=== PATIENT | female | born 1935 | race African-American/Black ===

== ENCOUNTER 2019-02-26 10:04 | Observation (INO) ==
--- NOTE | 2019-02-26 10:36 | Diag Imaging Result Doc PS360 ---
EXAM: CT HEAD W/O CONTRAST HISTORY: numbness TECHNIQUE: CT head without contrast COMPARISON: None. FINDINGS: No parenchymal hemorrhage. No epidural or subdural hematoma. No subarachnoid hemorrhage. There is mild atrophy. No mass identified on this noncontrasted exam. No hydrocephalus. No sinus opacification. IMPRESSION: No hemorrhage. Mild atrophy. This exam was performed using automated exposure control, adjustment of mA or kV according to patient size, and/or use of iterative reconstruction technique. Electronically signed by Sravan Mascorro 02/26/2019 10:34 AM
[2019-02-26 10:39] LABS: BASO# 0.01 X1000 (0.0-0.2); BASO% 0.1 % (0.0-0.8); EOS# 0.11 X1000 (0.0-0.7); EOS% 1.4 % (0.0-10.0); HEMATOCRIT 30.2 % (37.0-47.0); HEMOGLOBIN 9.4 g/dL (12.0-16.0); IMM GRAN# 0.04 X1000 (0.0-0.04); IMM GRAN% 0.5 % (0.0-0.5); LYMPH# 1.06 X1000 (1.2-3.4); LYMPH% 13.2 % (20.5-51.1); MCH 26.6 PG (27-31); MCHC 31.1 g/dL (33-37); MCV 85.3 FL (81-99); MONO# 0.86 X1000 (0.11-0.59); MONO% 10.7 % (1.7-9.3); MPV 11.2 FL (7.4-10.4); NEUT# 5.93 X1000 (1.4-6.5); NEUT% 74.1 % (42.2-75.2); PLT 180 X1000 (130-400); RBC 3.54 XMIL (4.2-5.4); RDW 13.7 % (11.5-14.5); WBC 8.01 X1000 (4.8-10.8)
[2019-02-26 10:57] LABS: ALBUMIN 4.1 g/dL (3.5-5.0); CALCIUM 9.7 mg/dL (8.8-10.2); POTASSIUM 4.4 mmol/L (3.5-5.1); TOTAL BILIRUBIN 0.2 mg/dL (0.20-1.00); TOTAL PROTEIN 7.1 g/dL (6.3-8.3)
[2019-02-26 11:12] LABS: URINE SOURCE CATH
[2019-02-26 11:19] LABS: BILIRUBIN URINE NEGATIVE (NEGATIVE); BLOOD URINE SMALL (NEGATIVE); COLOR YELLOW; GLUCOSE URINE NEGATIVE (NEGATIVE); KETONE URINE NEGATIVE (NEGATIVE); LEUKOCYTES URINE LARGE (NEGATIVE); NITRITE URINE NEGATIVE (NEGATIVE); PH URINE 7.5; PROTEIN URINE 30 mg/dL (NEGATIVE); SP GRAVITY URINE 1.016; TURBIDITY URINE TURBID (CLEAR); UROBILINOGEN URINE NORMAL (NORMAL)
[2019-02-26 11:20] LABS: UR EPITHELIAL CELLS <10 /HPF (<10); URINE BACTERIA 2+ /HPF; URINE RBC <10 /HPF (<10); URINE WBC TNTC /HPF (<10)
[2019-02-26] MEDS ORDERED: CIPRO PO ONE (12:20)
--- NOTE | 2019-02-26 12:48 | PROVIDER DOCUMENTATION ---
This chart was entered by Zhanna Nuñez Scribe, acting as scribe for Rajat Pritchett MD. HPI-Musculoskeletal Pain/Inj - GENERAL Stated Complaint: "Legs aren't working right" Time Seen by Provider: 02/26/19 10:02 Source: patient, EMS (first response) - HX OF PRESENT ILLNESS-MUSKULOSKELTAL Nature of Presenting Problem: 83 yobf presents to the ed via ems (first response) with c/o generalized BLE weakness during the night. pt sts she ambulates with a walker and last night had urgency to urinate but when she went to the restroom her lower extremities felt weak. pt has had intermittent dizziness and decreased urination. pt started a new bladder medication 2 weeks prior Quality of Pain: reports: fullness Severity in ED: moderate Onset/Duration: last night (and into the vp securities hours) Timing: intermittent Modifying Factors: improves with: rest. worse with: other (ambulation) Any recent injury?: No Locality of Occurance: Home Similar Symptoms Previously?: No Recently seen or treated by another doctor?: Yes (pcp 2 weeks prior) Review of Systems - Adult - REVIEW OF SYSTEMS - ADULT Constitutional: denies: chills, fever Eyes: reports: no symptoms reported Ears, Nose, Mouth & Throat: reports: no symptoms reported Cardiovascular: denies: chest pain, palpitations, syncope Respiratory: denies: cough, shortness of breath, wheezing Gastrointestinal: denies: diarrhea, nausea, vomiting Genitourinary: reports: see HPI, urinary retention, urgency Musculoskeletal: reports: see HPI, other (BLE weakness) Integumentary: reports: no symptoms reported Neurological: reports: see HPI, dizziness/vertigo. denies: headache/migraines, slurred speech, syncope, tremors Psychiatric: reports: no symptoms reported Endocrine: reports: no symptoms reported Hematologic/Lymphatic: reports: no symptoms reported Allergic/Immunologic: reports: no symptoms reported All Other Systems: Reviewed and Negative Past History - Adult - PAST MEDICAL HISTORY-ADULT Review of Records: reports: Old Records Reviewed, Nursing Assessment Review, Medications Reviewed, Social history reviewed & non-contributory. Major Childhood Illnesses: reports: denies history Cardiovascular: reports: HTN, hyperlipidemia Respiratory: reports: denies history Gastrointestinal: reports: denies history Obstetrical/Gynecological: reports: denies history Genitourinary: reports: other (overactive bladder) Musculoskeletal: reports: arthritis Neurological: reports: denies history Psychiatric: reports: denies history Endocrine/Immune: reports: Diabetes, thyroid disorder Diabetes Type: Type 2 Other Conditions: reports: denies history - PRIOR SURGERIES/PROCEDURES Surgical/Procedure History: reports: hysterectomy, joint replacement - IMMUNIZATION STATUS Childhood Immunizations: See Nurse Assessment Flu Vaccine: See Nurse Assessment - SOCIAL HISTORY Smoking: denies Substance Use: denies Living Situation: alone Physical Exam-Injury Related - Physical Exam-Injury Related Initial Vital Signs Reviewed: Yes General Appearance: appears well, alert, no apparent distress (pt is nontoxic in appearance), obese Eyes: PERRL/EOMI, pink conjunctivae Head, Ears, Nose, Mouth & Throat: moist mucous membranes Neck: non-tender, full range of motion, supple, normal inspection Respiratory: chest non-tender, lungs clear, normal breath sounds Cardiovascular: normal peripheral pulses, regular rate, rhythm Chest/Breast: deferred Abdominal Exam: normal bowel sounds, non tender, soft Female Genitalia/Pelvic Exam: other (prolapsed bladder noted). negative: blood Male Genitalia: deferred Rectal Exam: deferred Hemoccult Exam: deferred Lymphatic: no adenopathy Back Exam: normal inspection, no CVA tenderness, no vertebral tenderness Extremity: normal range of motion, non-tender, normal capillary refill, pelvis stable, swelling (BLE edema). 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 tested Psych/Mental Status: normal mood/affect, normal thought content, normal thought process, oriented x 3 - Glascow Coma Score Best Eye Response (Raymundo): (4) open spontaneously Best Verbal Response (Raymundo): (5) oriented Best Motor Response (Raymundo): (6) obeys commands [place] Total: 15 Progress - PLAN OF CARE/RESULTS Progress/Plan/Lab Results: Vital Signs - 8 hr 02/26/19 10:03 Temperature 97.3 F L Pulse Rate 78 Respiratory Rate 20 Blood Pressure 147/62 O2 Sat by Pulse Oximetry 98 Laboratory Results - last 24 hr 02/26/19 02/26/19 02/26/19 10:23 10:34 10:34 WBC 8.01 RBC 3.54 L Hgb 9.4 L Hct 30.2 L MCV 85.3 MCH 26.6 L MCHC 31.1 L RDW Std Deviation 13.7 Plt Count 180 MPV 11.2 H Immature Gran % (Auto) 0.5 Neut % (Auto) 74.1 Lymph % (Auto) 13.2 L Bollinger % (Auto) 10.7 H Eos % (Auto) 1.4 Baso % (Auto) 0.1 Immature Gran # (Auto) 0.04 Neut # (Auto) 5.93 Lymph # (Auto) 1.06 L [place]linger # (Auto) 0.86 H Eos # (Auto) 0.11 Baso # (Auto) 0.01 Sodium 142 Potassium 4.4 Chloride 103 Carbon Dioxide 27 Anion Gap 12 BUN 45 H Creatinine 1.0 H Estimated GFR/1.73 m2 53 BUN/Creatinine Ratio 45 Glucose 97 POC Glucose 100 Calculated Osmolality 295 Calcium 9.7 Total Bilirubin 0.20 AST 15 ALT 11 Alkaline Phosphatase 131 H Total Protein 7.1 Albumin 4.1 Globulin 3.0 Albumin/Globulin Ratio 1.0 Urine Source Urine Color Urine Turbidity Urine pH Ur Specific [place] Urine Protein Ur Glucose (Stick) Ur Ketones (Stick) Urine Blood Urine Nitrite Urine Bilirubin Urobilinogen Dipstick Urine Leukocytes Urine WBC (Auto) Urine RBC (Auto) U Epithel Cells (Auto) Urine Bacteria (Auto) 02/26/19 02/26/19 11:05 13:28 WBC RBC Hgb Hct MCV MCH MCHC RDW Std Deviation Plt Count MPV Immature Gran % (Auto) Neut % (Auto) Lymph % (Auto) [place] % (Auto) Eos % (Auto) Baso % (Auto) Immature Gran # (Auto) Neut # (Auto) Lymph # (Auto) [place]linger # (Auto) Eos # (Auto) Baso # (Auto) Sodium Potassium Chloride Carbon Dioxide Anion Gap BUN Creatinine Estimated GFR/1.73 m2 BUN/Creatinine Ratio Glucose POC Glucose 78 Calculated Osmolality Calcium Total Bilirubin AST ALT Alkaline Phosphatase Total Protein Albumin Globulin Albumin/Globulin Ratio Urine Source CATH Urine Color YELLOW Urine Turbidity TURBID Urine pH 7.5 Ur Specific [place] 1.016 Urine Protein 30 A Ur Glucose (Stick) NEGATIVE Ur Ketones (Stick) NEGATIVE Urine Blood SMALL A Urine Nitrite NEGATIVE Urine Bilirubin NEGATIVE Urobilinogen Dipstick NORMAL Urine Leukocytes LARGE A Urine WBC (Auto) TNTC A Urine RBC (Auto) <10 U Epithel Cells (Auto) <10 Urine Bacteria (Auto) 2+ Orders Category Date Time Status Street Cath Insertion ORDERED Care 02/26/19 12:[address] HEAD W/O CONTRAST [CT] Stat Exams 02/26/19 10:02 Completed CBC WITH ELECTRONIC DIFF [HEME] Stat Lab 02/26/19 10:34 Completed COMPREHENSIVE METABOLIC PANEL [CHEM] Stat Lab 02/26/19 10:34 Completed UA NIMS W/REFLEX CULT [URINALYSIS] Stat Lab 02/26/19 11:05 Completed Acetaminophen [Tylenol] Med 02/26/19 13:19 Discontinued 1,000 mg PO NOW ONE Bisoprolol [Zebeta] Med 02/26/19 13:33 Discontinued 10 mg PO NOW ONE Ciprofloxacin [Cipro] Med 02/26/19 12:20 Discontinued 500 mg PO NOW ONE Hydrochlorothiazide Med 02/26/19 13:18 Discontinued 12.5 mg PO NOW ONE Hydrochlorothiazide Med 02/26/19 13:34 Discontinued 6.25 mg PO NOW ONE LISINOpril [Prinivil] Med 02/26/19 13:18 Discontinued 20 mg PO NOW ONE Result Diagrams: 02/26/19 10:34 02/26/19 10:34 - REASSESSMENT Reassessment #1 Time Reassessed: 11:09 (dr cervantes in attempted to reduce the prolapsed bladder it is improved but still prolapsed ) Status: unchanged Reassessment #2 Time Reassessed: 12:46 Status: other (Pt requesting to stay as she cannot ambulate.) - EKG 1 Time of EKG reading by physician:: 10:14 EKG Read and Signed by:: Rajat Pritchett EKG Interpretation (*Must complete 3 of following elements*): Abnormal Rate: 76 Rhythm: nsr [place]: normal QRS: normal DC Interval: normal ST Wave: depressed (junctional ST depression, probably abnormal) - CT/MRI 1 CT Study: Head Impression: See EMR Report - CONSULTS/PCP/HOSPITALIST Notification #1 *Consult/PCP/Hospitalist*: dr ye pcp Time Discussed: 12:17 (pcp sts to place a street cath and she can f/u with him and regulatory law specialist next week) Reason/Comments: phone consult Consult Disposition: F/U in office #2 Consult: hospitalist Time Discussed: 13:19 (spoke with octavio) Reason/Comments: phone consult #3 Consult: hospitalist dr wagner Time Discussed: 13:38 Reason/Comments: is in ed speaking with pt Consult Disposition: Admit Departure - Departure Date of Disposition Decision: 02/26/19 Time of Disposition Decision: 11:42 DIAGNOSIS: Urine retention, Prolapsed bladder UTI (urinary tract infection) Qualifiers: Urinary tract infection type: site unspecified Hematuria presence: with hematuria Qualified Code(s): N39.0 - Urinary tract infection, site not specified; R31.9 - Hematuria, unspecified Disposition: ADMITTED INPATIENT 09 Certified Medical Emergency: Emergent Condition: Stable Additional Instructions: ED Follow Up Instructions: You have been treated by a care provider in the Emergency Department. These instructions are being provided to you so you can have an understanding of how to care for yourself upon discharge. Upon discharge from the Emergency Department, you are responsible for making arrangements for follow-up care by a physician of your choice. Take all prescribed medications as directed. Return to the Emergency Department immediately for any new or worsening symptom s. You may call the Physician Referral phone number at [phone] to obtain a list of Physicians who are taking new patients. Referrals and Follow-Ups: Matthew Ye MD [ACTIVE STAFF PHYSICIAN] - Discharge Education: Acute Urinary Retention, Female, Urinary Tract Infection, Adult, [id number], Indwelling Urinary Catheter Care, Adult, [id number] - Critical Care Note This patient required my direct & personal management of CC.: No Attestation - Physician/ ALEXA Attestation Patient care was provided by Advanced Practice Provider:: No The physician spent face to face time with patient:: Yes Advanced Practice Provider documentation review:: Supervising physician onsite and consulted in the evaluation and care of this patient. The physician did have a face to face encounter with the patient. This chart was documented by the indicated scribe, (Zhanna Nuñez Scribe) and accurately reflects the services I performed and decisions made by me, Rajat Pritchett MD, as attested by the provider's signature.
[2019-02-26] MEDS ORDERED: HYDROCHLOROTHIAZIDE PO ONE ×2 (13:18→13:34)
[2019-02-26] MEDS ORDERED: PRINIVIL PO ONE (13:18)
[2019-02-26] MEDS ORDERED: TYLENOL PO ONE (13:19)
[2019-02-26] MEDS ORDERED: ZEBETA PO ONE (13:33)
[2019-02-26] MEDS ORDERED: HYDROCHLOROTHIAZIDE ONE ×2 (13:54→14:33)
--- NOTE | 2019-02-26 14:19 | EKG Report ---
Test Performed on : 02/26/2019 10:14:10 AM Test Reason : ER Blood Pressure : / mmHG Vent. Rate : 076 BPM Atrial Rate : 076 BPM P-R Int : 168 ms QRS Dur : 076 ms QT Int : 376 ms P-R-T Axes : 073 -11 010 degrees QTc Int : 423 ms Normal sinus rhythm. Junctional ST depression, probably abnormal Abnormal ECG When compared with ECG of 17-FEB-2017 09:36, No significant change was found Unconfirmed Result
--- NOTE | 2019-02-26 15:20 | HISTORY AND PHYSICAL ---
PRIMARY CARE PHYSICIAN: Dr. Sheridan. CHIEF COMPLAINT: Bilateral lower extremity weakness, dizziness, urinary frequency, urgency, increased difficulty walking with her walker that progressively worsened overnight last night. HISTORY OF PRESENTING ILLNESS: This is an 83-year-old female who presents to [facility] ER with complaints of bilateral lower extremity weakness, stating that she uses a walker and had to go to the bathroom several times last night, but with each episode of ambulating, she became weaker and more difficult to walk. She had urinary urgency and frequency. Has had an issue in the past with a prolapsed bladder and had a pessary placed. Was noted today to have a prolapsed bladder. The ER physician attempted to reduce and was able to reduce some and it improved, but it was still prolapsed. A Huffman catheter was placed. Her urinalysis showed negative nitrites, large leukocytes, 2+ bacteria. White count was normal at 8.01. She does also have some 1+ to 2+ pitting edema to her bilateral lower extremities, so she will be admitted for further evaluation and treatment. PAST MEDICAL HISTORY: Hypertension, hyperlipidemia, an overactive bladder, diabetes type 2, hypothyroidism. PAST SURGICAL HISTORY: Hysterectomy and joint replacement and a pessary placement. FAMILY HISTORY: Reviewed and noncontributory. SOCIAL HISTORY: She currently lives alone. Denies any tobacco, alcohol or illicit drug use. ALLERGIES: She has no known drug allergies. HOME MEDICATIONS: She takes Lipitor 10 mg p.o. daily, bisoprolol/hydrochlorothiazide 10/6.25 one p.o. daily, Cardura 4 mg p.o. b.i.d., Lasix 40 mg p.o. daily, Lantus 20 units subcutaneous b.i.d., Prinzide 20/12.5 one p.o. daily, methimazole 10 mg p.o. b.i.d., Macrobid 100 mg p.o. b.i.d. will be held, MiraLAX 17 g p.o. daily, Detrol LA 4 mg p.o. daily and tolterodine ER 4 mg p.o. daily. LABORATORY DATA: Showed a white blood cell count of 8.01, hemoglobin 9.4, hematocrit 30.2, platelets 180. Sodium 142, potassium 4.4, chloride 103, CO2 27. BUN of 45, creatinine of 1, glucose 97. Urinalysis showed negative nitrites, large leukocytes, 2+ bacteria. X-RAY DATA: EKG showed normal sinus rhythm at 76. Head CT showed no hemorrhage and mild atrophy. REVIEW OF SYSTEMS: She denied any fever, chills, blurred vision. She was positive for dizziness, bilateral lower extremity weakness, decreased urination, urgency, hesitancy, frequency. Denied any abdominal pain, constipation, diarrhea, nausea, vomiting. PHYSICAL EXAMINATION: VITAL SIGNS: On arrival, showed a temperature of 97.3 degrees, pulse 78, respirations 20, blood pressure 147/62, satting 98% on room air. GENERAL: This is an 83-year-old female, who is lying in the bed and answers questions appropriately. HENT: Normocephalic, atraumatic. Normal ENT inspection. Oropharynx and nares are clear. EYES: Pupils are equal, round, reactive to light and accommodation. Extraocular movements are intact. NECK: Normal inspection, normal range of motion. LUNGS: Clear to auscultation bilaterally with equal lung expansion and chest wall movement. HEART: Regular rate and rhythm. No murmurs, rubs, or gallops. She does have 1+ to 2+ pitting edema to bilateral lower extremities also. ABDOMEN: Soft, nontender, nondistended. Bowel sounds are present x4 quadrants. MUSCULOSKELETAL: She has 2/5 strength to bilateral lower extremities, 5/5 strength to bilateral upper extremities. NEUROLOGICAL: The cranial nerves 2-12 appear grossly intact. BEAUTY SALES CONSULTANT: She does have a prolapsed bladder. We placed an indwelling Huffman catheter. ASSESSMENT: 1. Urinary tract infection. 2. Urinary retention. 3. A prolapsed bladder. 4. Bilateral lower extremity weakness. PLAN: She will be admitted to the medical unit at [place], placed on telemetry. We will consult Urogynecology. We will consult physical therapy. We will place on a diabetic diet. Place on Rocephin 1 gram IV q. 24 hours. Urine culture is pending. We will do pattern blood sugars with a sliding scale insulin. Continue on medications as previously identified. Recheck a CBC, BMP in the a.m. Further orders after seen by attending and pre sales technical consultant. Dictated by EUGENE Frias for Layton Bland MD cc: EUGENE Frias MD Rodney W. Harney, MD
[2019-02-26] MEDS ORDERED: TYLENOL PO PRN (15:30)
[2019-02-26] MEDS ORDERED: ROCEPHIN 1 GM in NS 50 ML IV SCH (15:30)
[2019-02-26] MEDS ORDERED: ZOFRAN IV PRN (15:30)
[2019-02-26] MEDS: HUMALOG (PARKWAY) SUBQ SCH ×2 (16:45→22:00)
--- NOTE | 2019-02-26 18:48 | HISTORY AND PHYSICAL ---
SUBJECTIVE: Patient has no major complaints. OBJECTIVE: Vital signs: Blood pressure is 135/51, heart rate 68, respiratory rate 15, temperature 98.1 degrees, 97% on room air. Cardiovascular: Regular rate and rhythm. Pulmonary: Bilateral breath sounds clear to auscultation. GI: Soft, nontender, nondistended. Bowel sounds are positive. I did not appreciate any prolapse myself. PROBLEM LIST: 1. She has urinary tract infection, which we will treat with antibiotics and monitor closely. 2. Vesicular prolapse. We are going to continue to monitor closely. 3. Hypothyroidism. We will check her thyroid function and monitor. cc: Layton Bland MD
[2019-02-26] MEDS: NORCO-5 PO PRN (18:53)
[2019-02-26] MEDS: OMNICEF PO SCH (20:33)
[2019-02-26] MEDS: CARDURA PO SCH (20:33)
[2019-02-26] MEDS: TAPAZOLE PO SCH (21:00)
[2019-02-26] MEDS: LANTUS INSULIN SUBQ SCH (22:00)
[2019-02-27] MEDS: NORCO-5 PO PRN ×3 (05:44→20:39)
[2019-02-27 06:12] LABS: BASO# 0.01 X1000 (0.0-0.2); BASO% 0.2 % (0.0-0.8); EOS# 0.15 X1000 (0.0-0.7); EOS% 2.5 % (0.0-10.0); HEMATOCRIT 26.5 % (37.0-47.0); HEMOGLOBIN 8.2 g/dL (12.0-16.0); IMM GRAN# 0.02 X1000 (0.0-0.04); IMM GRAN% 0.3 % (0.0-0.5); LYMPH# 1.33 X1000 (1.2-3.4); LYMPH% 22.2 % (20.5-51.1); MCH 26.7 PG (27-31); MCHC 30.9 g/dL (33-37); MCV 86.3 FL (81-99); MONO% 11.7 % (1.7-9.3); MPV 11.8 FL (7.4-10.4); NEUT# 3.77 X1000 (1.4-6.5); NEUT% 63.1 % (42.2-75.2); PLT 159 X1000 (130-400); RBC 3.07 XMIL (4.2-5.4); RDW 13.7 % (11.5-14.5); WBC 5.98 X1000 (4.8-10.8)
[2019-02-27 06:48] LABS: CREATININE 0.9 mg/dL (0.5-0.9); POTASSIUM 3.7 mmol/L (3.5-5.1)
--- NOTE | 2019-02-27 07:48 | CONSULTATION ---
DATE OF CONSULTATION: 02/27/2019 HISTORY OF PRESENT ILLNESS: The patient is an 83-year-old female who presented to the emergency department with complaints of prolapse and urinary tract infection, and upon evaluation by the hospitalist was admitted for urinary tract infection. During evaluation, she was found to have recurrent prolapse of the vaginal vault. The hospitalist worked with the pessary that was in place, and Huffman catheter was placed. The patient has been receiving antibiotics overnight, and I was consulted for evaluation of the prolapse. The patient has been seen in the past by Dr. Sherrie Frias and fitted with several pessaries. She has not been seen in the last several months, and this is the second hospital admission for the bladder issue with the patient. The patient's son is in the room, and I have reviewed the anatomy with the patient's son, as well as discussed with him future therapy. PAST MEDICAL HISTORY: Positive for cardiac disease and diabetes and hypertension. PAST SURGICAL HISTORY: Significant for prior hysterectomy. PHYSICAL EXAMINATION: General: Patient is resting in the bed. Genitourinary: Exam shows stage IV prolapse. She has a Gellhorn pessary that is placed in sideways to posterior. In other words, the short stem is actually going up to the bladder, and the large portion is laying against the rectal wall smoothly. However, with any movement, it is shifting to the lateral position. I repositioned the pessary in the right appropriate alignment with the vaginal vault. However, the short stem is probably going to struggle with maintaining the correct orientation if she is struggling with any constipation. ASSESSMENT AND PLAN: Patient with advanced stage prolapse, currently being managed by another physician with Gellhorn pessary. She needs to be refitted with a probable long-stem pessary or discuss possible obliterative procedure. I have discussed this with the patient and with the patient's son. I have gone through the animation with the patient's son and he understands. I have strongly suggested that she follow up with her physician in the next week or so for future therapy. cc: Rell Carrasquillo MD
[2019-02-27] MEDS ORDERED: TOLTERODINE TARTRATE 4 MG PO SCH (09:00)
[2019-02-27] MEDS: ZEBETA PO SCH (09:37)
[2019-02-27] MEDS: LASIX PO SCH (09:37)
[2019-02-27] MEDS: PRINIVIL PO SCH (09:37)
[2019-02-27] MEDS: MIRALAX PO SCH (09:37)
[2019-02-27] MEDS: CARDURA PO SCH ×2 (09:37→20:39)
[2019-02-27] MEDS: OMNICEF PO SCH ×2 (09:37→20:39)
[2019-02-27] MEDS: DETROL LA PO SCH (09:37)
[2019-02-27] MEDS: ZIAC 5/6.25 MG PO SCH (09:37)
[2019-02-27] MEDS: TAPAZOLE PO SCH ×2 (09:38→20:43)
[2019-02-27] MEDS: LANTUS INSULIN SUBQ SCH ×2 (09:38→20:44)
[2019-02-27] MEDS: HUMALOG (PARKWAY) SUBQ SCH ×4 (11:20→21:02)
--- NOTE | 2019-02-27 14:35 | PROGRESS NOTE ---
DATE: 02/27/2019 SUBJECTIVE: She has no major complaints. OBJECTIVE: Vital Signs: Blood pressure is 145/47, heart rate of 63, respiratory rate of 21, temperature 97.9 degrees, 98% on room air. Cardiovascular: Regular rate and rhythm. Pulmonary: Bilateral breath sounds clear to auscultation. GI: Soft, nontender, nondistended. Bowel sounds are positive. LABORATORY DATA: White count is 5, hemoglobin and hematocrit 8 and 26, platelets 159,000. Basic was normal. TSH is still low at 0.01 consistent with her hyperthyroidism. Her free T4 is still elevated at 3.17, which is almost double upper limit of normal so her methimazole may not be at a perfect dose here, but in any case. ASSESSMENT: 1. Urinary tract infection. She is on antibiotics. 2. Bladder prolapse. We are continuing to monitor. Greatly appreciate Dr. Carrasquillo's assistance. 3. Hyperthyroidism. I have adjusted her methimazole up a little bit to 15 b.i.d. for total of 30 mg, and we will monitor. cc: Layton Bland MD
[2019-02-27] MEDS: LIPITOR PO SCH (20:39)
[2019-02-28 06:24] LABS: BASO# 0.01 X1000 (0.0-0.2); BASO% 0.1 % (0.0-0.8); EOS# 0.25 X1000 (0.0-0.7); EOS% 3.2 % (0.0-10.0); HEMATOCRIT 27.8 % (37.0-47.0); HEMOGLOBIN 8.6 g/dL (12.0-16.0); IMM GRAN# 0.02 X1000 (0.0-0.04); IMM GRAN% 0.3 % (0.0-0.5); LYMPH# 1.34 X1000 (1.2-3.4); LYMPH% 16.9 % (20.5-51.1); MCH 26.5 PG (27-31); MCHC 30.9 g/dL (33-37); MCV 85.8 FL (81-99); MONO# 0.97 X1000 (0.11-0.59); MONO% 12.2 % (1.7-9.3); NEUT# 5.34 X1000 (1.4-6.5); NEUT% 67.3 % (42.2-75.2); PLT 169 X1000 (130-400); RBC 3.24 XMIL (4.2-5.4); RDW 13.8 % (11.5-14.5); WBC 7.93 X1000 (4.8-10.8)
[2019-02-28] MEDS: HUMALOG (PARKWAY) SUBQ SCH ×4 (06:29→21:36)
[2019-02-28 06:40] LABS: CREATININE 0.9 mg/dL (0.5-0.9); POTASSIUM 3.7 mmol/L (3.5-5.1)
[2019-02-28] MEDS: MIRALAX PO SCH (09:24)
[2019-02-28] MEDS: PRINIVIL PO SCH (09:25)
[2019-02-28] MEDS: DETROL LA PO SCH (09:25)
[2019-02-28] MEDS: CARDURA PO SCH ×2 (09:25→21:32)
[2019-02-28] MEDS: OMNICEF PO SCH ×2 (09:25→21:32)
[2019-02-28] MEDS: ZEBETA PO SCH (09:25)
[2019-02-28] MEDS: ZIAC 5/6.25 MG PO SCH (09:25)
[2019-02-28] MEDS: LASIX PO SCH (09:25)
[2019-02-28] MEDS: LANTUS INSULIN SUBQ SCH ×2 (09:26→21:32)
[2019-02-28] MEDS: TAPAZOLE PO SCH ×2 (10:42→21:41)
[2019-02-28] MEDS ORDERED: ULTRAM PO PRN (11:28)
--- NOTE | 2019-02-28 12:25 | PROGRESS NOTE ---
DATE: 02/28/2019 OBJECTIVE: Blood pressure is 134/44, heart rate 79, respiratory 17, temperature 98.4 degrees, 98% on room air.Cardiovascular: Regular rate and rhythm. Pulmonary: Bilateral breath sounds, clear to auscultation. GI: Soft, nontender, nondistended. Bowel sounds are positive. White count 7.9, hemoglobin and hematocrit 8 and 27, platelets 169,000. Basic looked okay. Sugar a little high at 294. PROBLEM LIST: 1. Urinary tract infection. Gram-negative wisam. We are waiting on final information and she is on cefdinir. 2. Bladder prolapse. We will continue to monitor. 3. Hypothyroidism. We have increased the methimazole. DISPOSITION: As I think she is probably stable, we will continue treatment and follow closely. We are waiting on a rehab bed as far as disposition. cc: Layton Bland MD MTDD
[2019-02-28] MEDS: MAG-OX PO SCH (13:08)
[2019-02-28] MEDS: NORCO-5 PO PRN (21:31)
[2019-02-28] MEDS: LIPITOR PO SCH (21:32)
[2019-03-01] MEDS: NORCO-5 PO PRN (05:25)
[2019-03-01 05:47] LABS: BASO# 0.01 X1000 (0.0-0.2); BASO% 0.1 % (0.0-0.8); EOS# 0.17 X1000 (0.0-0.7); EOS% 1.8 % (0.0-10.0); HEMATOCRIT 27.8 % (37.0-47.0); HEMOGLOBIN 8.8 g/dL (12.0-16.0); IMM GRAN# 0.02 X1000 (0.0-0.04); IMM GRAN% 0.2 % (0.0-0.5); LYMPH% 16.1 % (20.5-51.1); MCH 27.1 PG (27-31); MCHC 31.7 g/dL (33-37); MCV 85.5 FL (81-99); MONO# 1.24 X1000 (0.11-0.59); MONO% 13.3 % (1.7-9.3); MPV 11.7 FL (7.4-10.4); NEUT# 6.36 X1000 (1.4-6.5); NEUT% 68.5 % (42.2-75.2); PLT 169 X1000 (130-400); RBC 3.25 XMIL (4.2-5.4); RDW 13.7 % (11.5-14.5)
[2019-03-01 06:17] LABS: CREATININE 0.9 mg/dL (0.5-0.9); POTASSIUM 3.7 mmol/L (3.5-5.1)
[2019-03-01] MEDS: HUMALOG (PARKWAY) SUBQ SCH ×4 (06:23→21:19)
[2019-03-01] MEDS: DETROL LA PO SCH (08:19)
[2019-03-01] MEDS: MAG-OX PO SCH (08:19)
[2019-03-01] MEDS: MIRALAX PO SCH (08:20)
[2019-03-01] MEDS: LANTUS INSULIN SUBQ SCH ×2 (08:20→21:19)
[2019-03-01] MEDS: ZIAC 5/6.25 MG PO SCH (08:20)
[2019-03-01] MEDS: ZEBETA PO SCH (08:20)
[2019-03-01] MEDS: OMNICEF PO SCH ×2 (08:20→21:18)
[2019-03-01] MEDS: PRINIVIL PO SCH (08:20)
[2019-03-01] MEDS: CARDURA PO SCH ×2 (08:20→21:18)
[2019-03-01] MEDS: LASIX PO SCH (08:20)
[2019-03-01] MEDS: TAPAZOLE PO SCH ×2 (08:20→21:18)
[2019-03-01] MEDS ORDERED: FLEXERIL PO PRN (14:42)
--- NOTE | 2019-03-01 15:46 | PROGRESS NOTE ---
DATE: 03/01/2019 SUBJECTIVE: Patient has no major complaints. OBJECTIVE: Blood pressure 151/48, heart rate 71, respiratory rate 18, temperature 97.9 degrees, 99% on room air.Cardiovascular: Regular rate and rhythm. Pulmonary: Bilateral breath sounds clear to auscultation. GI: Soft, nontender, nondistended. Bowel sounds are positive. LABORATORY DATA: White count 9, hemoglobin and hematocrit 8.8 and 27, platelets 169,000. BUN and creatinine of 38 and 0.9. PROBLEM LIST: 1. Proteus mirabilis UTI. I think we could probably switch her to Keflex. She seems to be doing okay. She has been on Omnicef, which is reasonable but I do not think she needs such a strong antibiotic but it is okay. 2. Bladder prolapse. She is status post pessary and will need to follow up with her outpatient OB. 3. Hyperthyroidism. We have increased her methimazole. She will need follow-up for that. DISPOSITION: Anticipate rehab soon. cc: Layton Bland MD
[2019-03-01] MEDS: NORCO-7.5 PO PRN (21:18)
[2019-03-01] MEDS: LIPITOR PO SCH (21:18)
[2019-03-02] MEDS: HUMALOG (PARKWAY) SUBQ SCH ×5 (07:32→23:36)
[2019-03-02] MEDS: CARDURA PO SCH ×2 (08:26→20:48)
[2019-03-02] MEDS: PRINIVIL PO SCH (08:26)
[2019-03-02] MEDS: ZEBETA PO SCH (08:26)
[2019-03-02] MEDS: MAG-OX PO SCH (08:26)
[2019-03-02] MEDS: OMNICEF PO SCH ×2 (08:26→20:48)
[2019-03-02] MEDS: LASIX PO SCH (08:26)
[2019-03-02] MEDS: MIRALAX PO SCH (08:27)
[2019-03-02] MEDS: LANTUS INSULIN SUBQ SCH ×2 (08:27→20:49)
[2019-03-02] MEDS: DETROL LA PO SCH (08:27)
[2019-03-02] MEDS: TAPAZOLE PO SCH ×2 (08:30→20:49)
[2019-03-02] MEDS: ZIAC 5/6.25 MG PO SCH (08:30)
[2019-03-02] MEDS: NORCO-7.5 PO PRN ×2 (08:36→20:48)
[2019-03-02] MEDS ORDERED: LACTULOSE PO ONE (15:10)
--- NOTE | 2019-03-02 15:33 | Diag Imaging Result Doc PS360 ---
EXAM: KUB ABDOMEN HISTORY: abd pain, constipation TECHNIQUE: Single view. Portable. COMPARISON: None. FINDINGS: Limited visualization. The bowel gas pattern is nonobstructive. No organomegaly, mass effect, or abnormal calcifications are identified. Marked degenerative arthropathy lumbar spine. IMPRESSION: Limited portable evaluation. No acute abnormalities are appreciated. . Electronically signed by Nevaeh Triana 03/02/2019 3:31 PM
[2019-03-02 16:01] LABS: BE 3.1 mmoll (-3.0-3.0); BLOOD TYPE ARTERIAL; HCO3-(ACT) 27.4 mmoll (20.0-26.0); METHB 0.3 % (0.0-1.5); O2(CT) 9.9 mL/dL (15.0-23.0); O2HB 97.4 % (95.0-99.0); PCO2(98.6) 36 mmHg (35-45); PO2(98.6) 62 mmHg (60-100); SAMPLE BLOOD; SAO2 100.2 % (95.0-100.0); THB 7.2 g/dL (11.5-17.4); pH(98.6) 7.48 (7.35-7.45)
[2019-03-02 16:05] LABS: ALLEN TEST YES; MODALITY ROOM AIR
--- NOTE | 2019-03-02 16:47 | PROGRESS NOTE ---
DATE: 03/02/2019 SUBJECTIVE: The patient is more sleepy today, really not clear what is calling causing that but that could have been the Flexeril. She seems more calm, but that may be too sedating for her. OBJECTIVE: Vital Signs: Blood pressure 121/51, heart rate 116, respiratory rate of 18, temperature 98.2 degrees. Cardiovascular: Regular rate and rhythm. Pulmonary: Bilateral breath sounds clear to auscultation. Gastrointestinal: Abdomen soft, nontender, nondistended. Bowel sounds were positive. LABORATORY DATA: No new data today. Blood sugars 150s. PROBLEM LIST: 1. Proteus mirabilis urinary tract infection. She is on Omnicef. We will continue that based on sensitivities. 2. Bladder prolapse status post pessary. 3. Hyperthyroidism. We have adjusted her methimazole. 4. Encephalopathy may be related to sedating medications. We will try to hold off on anything too sedating in this patient. 5. She also needs to be instituted on a bowel regimen. 6. Nurse reports she has got a significant amount of pain in her lower extremities with walking, although she has not had any trauma, but we have not done any imaging of her pelvis or lower extremities. We will continue to monitor. cc: Layton Bland MD
--- NOTE | 2019-03-02 17:18 | Diag Imaging Result Doc PS360 ---
EXAM: CT PELVIS W/CONTRAST - 03/02/2019 HISTORY: pain, and discomfort in buttock area TECHNIQUE: CT pelvis with intravenous contrast COMPARISON: 02/02/2018 CT bony pelvis without contrast FINDINGS: There is a catheter in the urinary bladder. There is some sort of prosthesis between the urinary bladder and rectum which appears to represent a different prosthesis and was present on the prior exam. This is somewhat angulated in a counterclockwise direction compared to the prior prosthesis, which was transversely oriented. The possibility prosthesis malposition cannot be excluded. There is no substantial bowel wall thickening identified at the visualized bowel. There is retained fecal debris in the colon and rectum suggesting constipation. There is no abscess or free air identified in the pelvis. There is symmetrical subcutaneous soft tissue thickening at the junctions of the posterior medial upper thighs and buttocks bilaterally. These appear stable on the right and less prominent on the left compared to prior. There is no subcutaneous gas collection or abscess identified. There is a small fat-containing upper anterior pelvic wall hernia noted to the right of midline. There are severe lower lumbar spine degenerative changes noted. IMPRESSION: Prosthesis between urinary bladder and rectum. The prosthesis is somewhat angulated in a counterclockwise direction from transverse orientation, and possibly could be malpositioned. Correlation clinical evaluation is recommended. Apparent chronic inflammation or scarring at the junction of posterior medial upper thighs and buttocks. No indication of subcutaneous abscess. Apparent constipation. Severe lower lumbar spine degenerative changes noted. This exam was performed using automated exposure control, adjustment of mA or kV according to patient size, and/or use of iterative reconstruction technique. Electronically signed by Ulysses German 03/02/2019 5:15 PM
[2019-03-02] MEDS: LIPITOR PO SCH (20:48)
[2019-03-02] MEDS: LACTULOSE PO SCH (20:49)
[2019-03-03] MEDS: HUMALOG (PARKWAY) SUBQ SCH ×4 (06:02→22:00)
[2019-03-03 06:50] LABS: BASO# 0.01 X1000 (0.0-0.2); BASO% 0.1 % (0.0-0.8); EOS# 0.42 X1000 (0.0-0.7); EOS% 5.2 % (0.0-10.0); HEMATOCRIT 26.8 % (37.0-47.0); HEMOGLOBIN 8.5 g/dL (12.0-16.0); IMM GRAN# 0.04 X1000 (0.0-0.04); IMM GRAN% 0.5 % (0.0-0.5); LYMPH# 1.39 X1000 (1.2-3.4); LYMPH% 17.2 % (20.5-51.1); MCH 27.1 PG (27-31); MCHC 31.7 g/dL (33-37); MCV 85.4 FL (81-99); MONO# 1.14 X1000 (0.11-0.59); MONO% 14.1 % (1.7-9.3); MPV 11.7 FL (7.4-10.4); NEUT# 5.07 X1000 (1.4-6.5); NEUT% 62.9 % (42.2-75.2); PLT 149 X1000 (130-400); RBC 3.14 XMIL (4.2-5.4); RDW 13.7 % (11.5-14.5); WBC 8.07 X1000 (4.8-10.8)
[2019-03-03 07:23] LABS: CALCIUM 8.9 mg/dL (8.8-10.2); CREATININE 1.3 mg/dL (0.5-0.9); POTASSIUM 3.8 mmol/L (3.5-5.1)
[2019-03-03] MEDS: ZIAC 5/6.25 MG PO SCH (09:11)
[2019-03-03] MEDS: TAPAZOLE PO SCH ×2 (09:11→21:12)
[2019-03-03] MEDS: LACTULOSE PO SCH ×2 (09:12→21:11)
[2019-03-03] MEDS: LASIX PO SCH (09:12)
[2019-03-03] MEDS: MIRALAX PO SCH (09:12)
[2019-03-03] MEDS: MAG-OX PO SCH (09:12)
[2019-03-03] MEDS: PRINIVIL PO SCH (09:12)
[2019-03-03] MEDS: DETROL LA PO SCH (09:12)
[2019-03-03] MEDS: OMNICEF PO SCH ×2 (09:12→21:11)
[2019-03-03] MEDS: CARDURA PO SCH ×2 (09:12→21:11)
[2019-03-03] MEDS: ZEBETA PO SCH (09:12)
[2019-03-03] MEDS: LANTUS INSULIN SUBQ SCH ×2 (09:13→22:00)
[2019-03-03] MEDS: NORCO-7.5 PO PRN ×2 (09:24→21:20)
[2019-03-03] MEDS: LIPITOR PO SCH (21:11)
--- NOTE | 2019-03-03 21:11 | PROGRESS NOTE ---
DATE: 03/03/2019 SUBJECTIVE: Patient notes that she is feeling a little bit better. Denies any current complaints. Denies fevers or chills. She is calm today. PHYSICAL EXAM: Vital Signs:: Temperature 98.3, pulse 65, respiratory rate 18, BP 126/85. General: The patient is pleasant. She is in no distress. HEENT: Normocephalic. Neck: Supple. Cardiovascular: Regular rate. Chest: Clear. Abdomen: Soft. Extremities: Moves all extremities. LABORATORY DATA: CBC normal with hemoglobin and hematocrit 8 and 26. Sodium 134, creatinine 1.3 and glucose 145. ASSESSMENT: 1. Proteus mirabilis urinary tract infection, on Omnicef. 2. Bladder prolapse. 3. Hyperthyroidism. 4. Encephalopathy. Seems to be improving. 5. Lower extremity pain. Patient notes that she was able to ambulate, and her pain seems to be better today. PLAN: We are going to continue patient in the hospital today. Hopefully, she can be discharged home over the next day or 2. cc: Ludwig Conn MD
[2019-03-04] MEDS: NORCO-7.5 PO PRN (03:21)
[2019-03-04] MEDS: HUMALOG (PARKWAY) SUBQ SCH ×2 (06:46→11:20)
--- NOTE | 2019-03-04 10:05 | Diag Imaging Result Doc PS360 ---
EXAM: CHEST-PORTABLE HISTORY: rehab TECHNIQUE: Single view of the chest was performed portably. COMPARISON: 12/03/2018 FINDINGS: There are reduced lung volumes. There is cardiomegaly. No focal consolidation. The pulmonary vasculature is not congested. There is severe rotator cuff arthropathy bilaterally. IMPRESSION: No acute cardiopulmonary abnormality is identified. Electronically signed by Nevaeh Triana 03/04/2019 10:03 AM
[2019-03-04] MEDS: MIRALAX PO SCH (11:19)
[2019-03-04] MEDS: ZIAC 5/6.25 MG PO SCH (11:21)
[2019-03-04] MEDS: MAG-OX PO SCH (11:21)
[2019-03-04] MEDS: ZEBETA PO SCH (11:21)
[2019-03-04] MEDS: OMNICEF PO SCH (11:21)
[2019-03-04] MEDS: TAPAZOLE PO SCH (11:21)
[2019-03-04] MEDS: CARDURA PO SCH (11:21)
[2019-03-04] MEDS: PRINIVIL PO SCH (11:21)
[2019-03-04] MEDS: LASIX PO SCH (11:22)
[2019-03-04] MEDS: LANTUS INSULIN SUBQ SCH (11:22)
[2019-03-04] MEDS: LACTULOSE PO SCH (11:22)
--- NOTE | 2019-03-04 11:23 | DISCHARGE SUMMARY ---
ADMISSION DATE: 02/26/2019 DISCHARGE DATE: 03/04/2019 DIAGNOSES: 1. Proteus mirabilis urinary tract infection on Omnicef. 2. Prolapse with a pessary malpositioned in place. 3. Hyperthyroidism. 4. Encephalopathy, improving. 5. Lower extremity pain, improving. 6. Generalized weakness. 7. Diabetes mellitus type 2. CONSULTS: Rell Carrasquillo MD DIAGNOSTICS: 1. CT of the head revealed no hemorrhage, mild atrophy. 2. Abdominal x-ray revealed no acute abnormalities appreciated. 3. Pelvis CT, prosthesis between the urinary bladder and rectum. The prosthesis is somewhat angulated in a counter-clockwise direction from transverse orientation and possibly could be malpositioned. Constipation and lower lumbar spine degenerative changes. 4. Chest x-ray revealed no acute cardiopulmonary abnormality identified. 5. Microbiology: Urine culture revealed Proteus mirabilis, which is resistant to nitrofurantoin. HOSPITAL COURSE: Ms. Jones presented to the emergency room complaining of bilateral lower extremity weakness, dizziness, some difficulty walking, even with the use of her walker with increased urinary urgency and frequency. She was found to have a Proteus mirabilis UTI, for which she was initially placed on Rocephin, and this has been transitioned over to Omnicef for discharge. In regards to her hyperthyroid, she was noted to have a TSH of 0.01 and a free T4 of 3.17. Her methimazole was increased to 30 mg daily. We continued her home medications for her diabetes, and blood sugars were primarily in the 108 to it looks like 250 range. 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 This has been followed by Dr. Sherrie Frias. She has been fitted with multiple pessaries. Evidently, a pessary has just been placed in the recent past. In the emergency room, the ER physician found that the patient had recurrent prolapse of the vaginal vault. Pessary was repositioned and Huffman catheter was placed. On Dr. Carrasquillo's exam, the pessary was malposition. He did reposition the pessary and found that with any constipation or with certain movements that the pessary was repositioning itself. He recommended that she be refitted with a different type of pessary. Huffman catheter was discontinued, and she once again went into retention, having a bladder scan of 458 mL. Huffman catheter was replaced. I spoke with Nickolas, the nurse at [facility], updated them on events and that the patient would be coming to [facility] with a Huffman catheter in place, and an appointment has been scheduled with Dr. Frias on March 10 at 2:45. They did state that they would be able to supply transportation to take the patient to this appointment. DISCHARGE VITAL SIGNS: Blood pressure is 103/44 with a heart rate of 90, respirations are 18, temperature is 98.4 degrees oral with room air saturations 100%. DISCHARGE PHYSICAL EXAMINATION: Cardiovascular: Regular rate and rhythm. S1 and S2 are appreciated. Pulmonary: Breath sounds are clear with no increased work of breathing noted. Chest rise and falls symmetric with respiration. Gastrointestinal: The abdomen is soft, nontender, nondistended with bowel sounds in all 4 quadrants. Genitourinary: Huffamn is in place. Neurologic: She is alert. She is oriented to person, place, and family. Skin: Warm and dry. DISCHARGE MEDICATIONS: 1. Tylenol 650 daily every 6 hours p.r.n. 2. Detrol LA 4 mg daily. 3. [place] 7.5 one every 12 hours p.r.n. pain. 4. Omnicef 300 mg p.o. b.i.d. for 7 days. 5. Bisoprolol/hydrochlorothiazide 10/6.25 one p.o. daily. 6. Atorvastatin 10 mg p.o. daily. 7. Cardura 4 mg p.o. daily. 8. Lasix 40 mg p.o. daily. 9. Lantus insulin 20 units subcutaneous b.i.d. 10. Prinzide 20/12.5 one p.o. daily. 11. Magnesium oxide 500 mg p.o. daily. 12. Tapazole 15 mg p.o. b.i.d. 13. MiraLAX 17 grams p.o. daily FOLLOWUP: Dr. Sherrie Frias on 03/10/2019 at 2:45 p.m. The patient will be discharged with a Huffman catheter in place until she is evaluated at this appointment by Dr. Frias. DISPOSITION: She is being discharged to rehab in stable condition. TIME SPENT: This is a greater than 30 minute discharge. Dictated by EUGENE Herrera for Ludwig Conn MD cc: EUGENE Herrera MD
[2019-03-04] MEDS: DETROL LA PO SCH (11:24)
[2019-03-04 11:28] LABS: URINE SOURCE CATH
[2019-03-04 11:31] LABS: BILIRUBIN URINE NEGATIVE (NEGATIVE); BLOOD URINE NEGATIVE (NEGATIVE); COLOR YELLOW; GLUCOSE URINE NEGATIVE (NEGATIVE); KETONE URINE NEGATIVE (NEGATIVE); LEUKOCYTES URINE NEGATIVE (NEGATIVE); NITRITE URINE NEGATIVE (NEGATIVE); PROTEIN URINE NEGATIVE (NEGATIVE); SP GRAVITY URINE 1.025; TURBIDITY URINE CLEAR (CLEAR); UROBILINOGEN URINE NORMAL (NORMAL)
[2019-03-04 11:33] LABS: UR EPITHELIAL CELLS <10 /HPF (<10); URINE BACTERIA NEGATIVE /HPF; URINE RBC <10 /HPF (<10); URINE WBC <10 /HPF (<10)
[2019-03-04 11:48] VITALS: BP 138/47
--- NOTE | 2019-03-05 15:46 | DISCHARGE SUMMARY ---
ADMISSION DATE: 02/26/2019 DISCHARGE DATE: 03/04/2019 ADDENDUM: Patient seen and examined by myself. She does have what appears to be, according to an ill-fitting pessary which is creating difficulty urinating. We attempted to remove her Huffman and this was not successful. We did replace her Huffman and she is tolerating it well. We are going to discharge her to rehab for physical therapy. She will follow up outpatient with her [employer] to get refitted for a pessary prior to her Huffman removed. Thankfully, her leg pain has improved. cc: Ludwig Conn MD MTDD
== END 2019-03-04 14:48 ==
LOC: P.MEDSURG 10:04 → P.ED 10:04 → SUATTDRO 15:18 → P.MEDSURG 15:34
PROVIDERS: ATTEND Family Medicine